=== PATIENT | female | born 1995 ===

== ENCOUNTER 2021-11-18 20:49 | Emergency (ER) | payer OTHER, SELFPAY ==
--- NOTE | ~2021-11-18 | XR_ITS ---
EXAMINATION: XR FOOT, LEFT CLINICAL INFORMATION: Foreign body left great toe. COMPARISON: None TECHNIQUE: AP, lateral, and oblique views of the left foot. FINDINGS: The bones and soft tissues are normal. No fracture. Alignment is anatomic. Joint spaces are maintained. XR/XR foot LT 2V IMPRESSION: Unremarkable left foot.
[2021-11-18 21:10] VITALS: BP 110/57; PULSE 76; RESP 18; TEMP 36.8; O2SAT 99; BMI 27.3
--- NOTE | 2021-11-18 22:30 | ED_ITS ---
HPI - Skin/Abscess/Foreign Bdy General Chief complaint: Skin/Abscess/Foreign Body Stated complaint: laceration and glass in big toe Time Seen by Provider: 11/18/21 22:01 Source: patient Mode of arrival: ambulatory Limitations: no limitations History of Present Illness HPI narrative: 26-year-old female here with reports of laceration to the left great toe after stepping on a piece of glass from a broken plate. Related Data Allergies Allergy/AdvReac Type Severity Reaction Status Date / Time No Known Allergies Allergy Verified 11/18/21 21:10 Review of Systems Review of Systems: Yes all other systems are reviewed and are negative Constitutional: Constitutional: Reports no additional constitutional complaints, Denies body ache(s), Denies chills, Denies fever(s), Denies headache(s) and Denies weakness Eyes: Eyes: Reports no additional eye complaints and Denies change in vision ENT: Reports system reviewed and no additional complaints, except as documented, Denies dizziness, Denies headache(s), Denies nasal congestion, Denies nasal discharge and Denies neck pain Cardiovascular: Cardiovascular: Reports no additional cardiovascular complaints, Denies chest pain, Denies leg edema and Denies dyspnea Respiratory: Respiratory: Reports no additional respiratory complaints, Denies cough and Denies dyspnea Gastrointestinal: Gastrointestinal: Reports no additional gastrointestinal complaints, Denies abdominal pain, Denies diarrhea, Denies nausea and Denies vomiting Genitourinary: Genitourinary: Reports no additional female genitourinary complaints and Denies urinary incontinence Musculoskeletal: Musculoskeletal: Reports no additional musculoskeletal compl aints, Denies back pain, Denies arthralgias, Denies joint swelling, Denies neck pain, Denies numbness and Denies tingling Integumentary/Breasts: Skin/Breast: Reports system reviewed and no additional complaints, except as docu and Denies rash Comments: +laceration Neurologic: Reports system reviewed and no additional complaints, except as documented, Denies Abnormal speech present, Denies dizziness, Denies headache(s), Denies numbness, Denies tingling and Denies weakness PMFSH Past Medical History Attestation statement: The following information was validated with the patient. Source: old records reviewed and nursing notes reviewed Social History Social History Advance Directives: No Physical Exam Vital Signs: Vital Signs: Last Vital Signs Temp 98.3 F 11/18/21 21:10 Pulse 76 11/18/21 21:10 Resp 18 11/18/21 21:10 BP 110/57 L 11/18/21 21:10 Pulse Ox 99 11/18/21 21:10 O2 Del Method 11/18/21 21:10 BMI result Body Mass Index 27.3 Const: General: cooperative, healthy appearing, comfortable and no acute distress Orientation/consciousness: patient oriented x3 Limitations: no limitations HEENT: Head: Yes normal to inspection Ears: hearing grossly normal bilaterally General nose exam: Normal external nose present Face and sinus: Yes normal facial exam Mouth: Normal oral and palatal mucosa present Throat: Yes posterior oropharynx normal Eyes: General: appearance normal, both eyes and all related structures Pupils: Equal, round and reactive pupils present Neck: Neck: Yes normal visual inspection Chest: Chest palpation & inspection: normal inspection of the chest Resp: Effort & Inspection: normal respiratory effort Auscultation: clear to auscultation bilaterally Cardio: Rate: regular rate Rhythm: regular rhythm Peripheral pulses: Peripheral pulses 2+ throughout GI: Inspection: Yes normal to inspection Palpation (GI): Soft to palpation and nontender Auscultation: normal bowel sounds Back/Spine/Pelvis: Thoracic/Lumbar Spine: thoracic and lumbar spine normal to inspection Skin: General skin exam: no rashes or lesions noted Neuro: General: patient oriented x3, no focal motor deficits and normal sensation to monofilament Cranial nerves: Yes Equal, round and reactive pupils present Cognition (Neuro): normal cognition Speech: No Abnormal speech present Gait exam (Neuro): Normal gait present Motor exam (neuro): 5/5 motor strength present throughout Extrem: Other: Over the volar aspect of left great toe there is an abrasion. General: Yes normal to inspection Course Course Course Narrative: See procedure note for soft tissue foreign body removal. Wound was cleansed with Betadine and saline. A topical antibiotic ointment and bandage were applied. Reviewed worrisome signs and symptoms when to return to the emergency department. Comfortable discharge home. MDM - Skin/Abscess/Foreign Bdy MDM Narrative Medical decision making narrative: Left great toe laceration with foreign body. Will check x-rays, perform foreign body removal Medical Records Attestation: I reviewed the patient's medical records. Lab Data Attestation: I reviewed the patient's lab results. Imaging Data foot xray: Attestation: I personally reviewed and interpreted this imaging study as follows: Radiologist's impression: [address] [address] XRay Report Signed Patient: Araseli Grayson MR#: [id number] : 1995 Acct:[id number] Age/Sex: 26 / F ADM Date: 11/18/21 Loc: HO.ED Attending Dr: Ordering Physician: Belem Thorpe NP Date of Service: 11/18/21 Procedure(s): XR foot LT 2V Accession Number(s): [id number] cc: Belem Thorpe NP~ EXAMINATION: XR FOOT, LEFT CLINICAL INFORMATION: Foreign body left great toe.? COMPARISON: None? TECHNIQUE: AP, lateral, and oblique views of the left foot. FINDINGS: The bones and soft tissues are normal. No fracture. Alignment is anatomic. Joint spaces are maintained.? XR/XR foot LT 2V IMPRESSION: Unremarkable left foot. Procedures Foreign Body Removal Site: left Description of foreign body: other (glass) Sedation/Analgesia: none Technique: manual removal Confirmed by:: direct visualization and radiograph Complications: none Neurovascular: normal distal pulse, normal capillary fill, distal light touch sensation intact and distal motor function normal Nerve Block Nerve Block 1: Local Anesthetic: lidocaine 1% Amount of anesthesia used (mL): 2 Side: left Nerve Blocks: digital Procedure Successful: Yes Patient Tolerated Procedure: well Complications: none Discharge Plan Discharge Clinical Impression: Foreign body (FB) in soft tissue Patient Disposition: Home, Self-Care Instructions: Soft Tissue Foreign Body (ED) Additional Instructions: Keep the wound clean covered and dry Referrals: Physician,Mari J [Primary Care Provider] - Interventions: ED Discharge Assessment Last Done: 11/18/21 23:51
[2021-11-18] MEDS: Lidocaine HCl 1 % MPF 5 ML VIAL SUBCUT (23:12)
== END 2021-11-18 23:53 | disposition home or self-care (01) ==
PROVIDERS: Emergency Provider Emergency Medicine Emergency Medical Services
DX: S91.142A Puncture wound with foreign body of left great toe without damage to nail, initial encounter (principal); W25.XXXA Contact with sharp glass, initial encounter; Y93.01 Activity, walking, marching and hiking; Y92.010 Kitchen of single-family (private) house as the place of occurrence of the external cause; Y99.9 Unspecified external cause status
CPT/HCPCS: 64450; 73620; 99282; 99284

== ENCOUNTER 2025-03-24 20:13 | Emergency (ER) | payer OTHER, SELFPAY ==
--- NOTE | 2025-03-24 | ECG_ITS ---
Test Reason : CP Blood Pressure : */* mmHG Vent. Rate : 76 BPM Atrial Rate : 76 BPM P-R Int : 152 ms QRS Dur : 84 ms QT Int : 374 ms P-R-T Axes : 66 39 24 degrees QTcB Int : 420 ms Normal sinus rhythm Normal ECG No previous ECGs available Referred By: Generic ED Physician Electronically Signed By: ZAIRA ROWE MD
[2025-03-24 20:34] VITALS: BP 114/61; PULSE 73; RESP 16; TEMP 36.8; O2SAT 97; BMI 26.0
--- NOTE | 2025-03-24 20:35 | ED_ITS ---
HPI - General Adult General Chief complaint: Chest Pain Stated complaint: chest pain / stress test abnormal at pcp Time Seen by Provider: 03/24/25 21:49 Source: patient, family (), RN notes reviewed and old records reviewed Mode of arrival: ambulatory Limitations: no limitations History of Present Illness ED Provider: Dr. Alysia Davies HPI narrative: 30-year-old female with a history of hypercholesterolemia presenting with chest pain that is been ongoing for months and worsening over the last several days. Patient was seen at [facility] earlier today and had a stress test performed around 8:00 a.m.. States that she got a phone call from her doctor's office telling her to come to the emergency department if she experienced any further chest pains due to an abnormal stress test report. Patient states that she has chest pain all of the time that is 3/10 in intensity. Today she noticed while exerting herself at work that the pain became worse. She called her doctor's office and they told her to come to the hospital right away. She denies associated shortness of breath, cough or cold-type symptoms, fevers, nausea, vomiting, lower extremity edema or pain. Has not taken anything for pain at home. Family history of heart disease but not at a young age. Patient has not started any medications for hypercholesterolemia just yet. Related Data Allergies Allergy/AdvReac Type Severity Reaction Status Date / Time oxycodone Allergy Rash Verified 03/24/25 20:36 Review of Systems 2 Review of Systems: as per HPI, full review of systems performed and negative but for the above mentioned pertinent positives and negatives. [facility] Social History Social History Smoked in Last 30 Days: No Use of substances other than those prescribed or required for medical reasons: No Advance Directives: No Advance Directives Information Provided: Yes Do you have a plan to hurt others: No Plan Physical Exam ED Exam Exam: GENERAL: Well-Appearing, conversant, no acute distress. SKIN: Normal skin color for ethnicity, warm, dry, no rashes noted. HEENT:? Normocephalic, atraumatic, no stridor, posterior oropharynx nonerythematous, dentition intact, EOMI. NECK: Soft, supple, full ROM, midline structures nontender, no step-offs, no deformities, no lymphadenopathy. CHEST: Heart regular rate and rhythm, no murmurs, symmetric chest rise and fall. PULMONARY: Clear to auscultation bilaterally, no labored breathing, no wheezes/rhales/rhonchi. ABDOMINAL: Soft, nondistended, nontender, positive bowel sounds in all quadrants. : Deferred. MUSCULOSKELETAL: Normal tone, full range of motion, no deformities, no peripheral edema. NEURO: Alert and oriented x3, CN II through XII intact, equal strength and sensation bilateral upper and lower extremities, no focal neurologic deficits.? PSYCHIATRIC: Normal affect, fluid speech, good eye contact and appropriate demeanor. Vital Signs: Vital Signs - 24 hr 03/24/25 20:34 03/24/25 23:11 Temperature 98.2 F 98.3 F Pulse Rate 73 74 Respiratory Rate 16 18 Blood Pressure 114/61 132/67 Pulse Oximetry 97 99 Oxygen Delivery Method Room Air Room Air BMI result Body Mass Index 26.0 Course Course Course Narrative: RME: 30 yo F here for chest pain that radiates to neck. 4 months. Had stress test at [facility]. Recommend her come to ED for abnormal stress test. Medications Administered Discontinued Medications Generic Name Dose Route Start Last Admin Trade Name Freq PRN Reason Stop Dose Admin Ibuprofen 600 mg 03/24/25 23:04 03/24/25 23:50 Ibuprofen 600 Mg Tablet PO 03/24/25 23:05 600 mg ONCE ONE Administration Medical Decision Making Medical Decision Making [facility] Narrative: Patient presents today with a chief complaint of chest pain. Differential diagnosis includes, but is not limited to, acute coronary syndrome, musculoskeletal pain, pneumothorax, GERD, pleurisy, pulmonary embolism, dissection, among others. I will order EKG,laboratory workup including cardiac enzymes to further evaluate for etiology. Patient has been dealing with this issue for 4 months. She had a stress test today that was reportedly abnormal showing evidence of ischemia. I requested [facility] records and indeed she had an exercise stress test at about 8:00 a.m. this morning which revealed evidence of ST depressions in leads V3 through V5 during peak exercise exertion. EKG results baseline after rest. Recommended repeat stress test with imaging. Patient was told to come to the hospital if she experienced chest pain again today. On my exam, patient is well-appearing, resting, appears to be in no distress whatsoever. Her vital signs are totally normal and she reports a 3/10 intensity in the left chest radiating to her back. No dyspnea on exam. Oxygen levels are normal. She is PERC negative. Heart score 2 for risk factors and a slightly suspicious story of chest pain on exertion. Initial cardiac enzyme is low. We will repeat cardiac enzyme and EKG to see if it trends in the wrong direction but I anticipate that she will be stable for discharge to follow up with her senior application programmer as an outpatient. I had an extensive discussion with the patient and her about abnormal stress test and what that means. Patient understands and agrees with plan. Differential Diagnosis Differential Diagnoses: The differential diagnosis associated with the presentation includes (As above) Admission/Observation Consideration of admission/observation: Escalation of care including admission/observation considered Lab Data MDM Lab Attestation statement: I reviewed the patient's lab results. 03/24/25 20:55 03/24/25 20:55 Labs: Lab Results 03/24/25 03/24/25 Range/Units 20:55 23:20 WBC 9.1 (4.8-10.8) X10*3/uL RBC 4.68 (4.20-5.50) X10*6/uL Hgb 12.1 (12.0-16.0) g/dl Hct 37.4 (37.0-47.0) % MCV 79.9 L (80.0-98.0) fL MCH 25.9 L (27.0-33.0) pg MCHC 32.4 (31.0-35.0) g/dl RDW 13.1 (11.0-16.0) % Plt Count 213 (160-400) X10*3/uL MPV 11.9 (9.4-12.3) fL Immature Gran % (Auto) 0.2 (0.0-0.4) % Neut % (Auto) 59.0 (45-73) % Lymph % (Auto) 32.3 (20-40) % [place] % (Auto) 6.5 (2-11) % Eos % (Auto) 1.7 (0-4) % Baso % (Auto) 0.3 (0-2) % Lymph # (Auto) 2.9 (1.2-4.9) X10*3/uL [place] # (Auto) 0.6 (0.1-1.2) X10*3/uL Eos # (Auto) 0.2 (0.0-0.4) X10*3/uL Baso # (Auto) 0.0 (0.0-0.2) X10*3/uL Abs Immat Gran (auto) 0.02 (0.00-0.03) X10*3/uL Absolute Neuts (auto) 5.4 (2.0-8.3) x10*3/uL Absolute Nucleated RBC 0.000 (0.0-0.012) X10*3/uL Nucleated RBC % (auto) 0.0 (0.0-0.2) /100WBC Sodium 140 (135-145) mmol/L Potassium 3.8 (3.3-5.1) mmol/L Chloride 105 (96-108) mmol/L Carbon Dioxide 27 (22-29) mmol/L Anion Gap 11 L (12-20) BUN 12 (9-16) mg/dL Creatinine 0.70 (0.5-1.4) mg/dL Estim Creat Clear Calc 126.4 Estimated GFR > 60 Random Glucose 96 (60-115) mg/dL Calcium 9.2 (8.4-10.2) mg/dL Magnesium 2.1 (1.6-2.6) mg/dL Total Bilirubin 0.7 (0.0-1.0) mg/dL AST 17 (5-31) U/L ALT 14 (0-31) U/L Alkaline Phosphatase 64 (39-117) U/L Troponin I High Sens < 2.7 < 2.7 (<3.5-17.0) ng/L Total Protein 7.2 (6.5-8.0) g/dL Albumin 4.4 (3.5-5.0) g/dL Beta HCG, Quant < 2 mIU/mL Independent Interpretation I performed an independent interpretation of an: EKG Interpretation: 03/24/2025 8:20 p.m. My independent interpretation of the ECG reveals normal sinus rhythm with rate of 76, normal axis, normal intervals, no ST elevations or depressions to suggest ischemic changes, no previous for comparison. 03/24/2025 11:23 p.m. My independent interpretation of the ECG reveals normal sinus rhythm with rate of 65, normal axis, normal intervals, no ST elevations or depressions to suggest ischemic changes, unchanged from previous. Independent Historian Clinical information obtained from an independent historian. History obtained from or confirmed by: Spouse External Record Review External record reviewed: Outpatient record and Other ([facility] stress test report) Prescription Management I considered prescription management with: Pain Medication Chronic Conditions Patient?s care impacted by: Other (Hyperlipidemia) Discharge Plan Discharge Clinical Impression: Chronic chest pain, Abnormal electrocardiogram during exercise stress test Patient Disposition: Home, Self-Care Instructions: Chest Pain (ED) Additional Instructions: Thankfully your cardiac workup here in the emergency department was normal. Please call your senior application programmer and your primary care doctor tomorrow morning to follow up. They want to do another stress test with different imaging. If you develop any new or worsening symptoms including: Worsening chest pain, shortness of breath, fevers greater than 100?, sputum production that is green or bloody, you should return to the emergency department immediately. Call 911 with any medical emergency. You may take Tylenol or Motrin at home for pain. Continue to rest as much as possible. I hope you feel better. Referrals: [facility] [Provider Group, Cardiology] Print Language: Macanese
[2025-03-24 20:58] LABS: MANUAL DIFF FLAG NO
[2025-03-24 21:00] LABS: Hematocrit 37.4 % (37.0-47.0); Hemoglobin 12.1 g/dl (12.0-16.0); Imm Gran Abs Auto 0.02 X10*3/uL (0.00-0.03); Imm Gran Pct Auto 0.2 % (0.0-0.4); Lymphocytes Absolute Auto 2.9 X10*3/uL (1.2-4.9); Mean Corpuscular HGB Conc 32.4 g/dl (31.0-35.0); Mean Corpuscular Hemoglobin 25.9 pg (27.0-33.0); Mean Corpuscular Volume 79.9 fL (80.0-98.0); NRBC Abs Auto 0.000 X10*3/uL (0.0-0.012); NRBC Pct Auto 0.0 /100WBC (0.0-0.2); Platelet Count 213 X10*3/uL (160-400); Red Blood Count 4.68 X10*6/uL (4.20-5.50); White Blood Count 9.1 X10*3/uL (4.8-10.8)
[2025-03-24 21:25] LABS: Chloride 105 mmol/L (96-108); Potassium 3.8 mmol/L (3.3-5.1); Sodium 140 mmol/L (135-145)
[2025-03-24 21:31] LABS: Troponin-I High Sensitivity < 2.7 ng/L (<3.5-17.0)
[2025-03-24 21:40] LABS: Alanine Aminotransferase 14 U/L (0-31); Albumin Level 4.4 g/dL (3.5-5.0); Alkaline Phosphatase 64 U/L (39-117); Anion Gap 11 (12-20); Blood Urea Nitrogen 12 mg/dL (9-16); Calcium 9.2 mg/dL (8.4-10.2); Carbon Dioxide 27 mmol/L (22-29); Creatinine Clr Calc Pharmacy 126.4; Estimated Glomerular Filt Rate > 60; Magnesium 2.1 mg/dL (1.6-2.6); Total Protein 7.2 g/dL (6.5-8.0)
--- OUTSIDE RECORDS SUMMARY | 2025-03-24 21:55 | XMS_ITS | Data Portability ---
Author Organization [place] - [facility], Allergy Address [address] [address] Care Team Providers Care Results Engineer Name Role Phone NADEEM TAPIA Primary Care Provider Assessment Encounter Date Assessment Date Assessment LastModified by Organization Details LastModified Time 05/30/2024 05/30/2024 The patient complains of intermittent left-sided periauricular pressure sensation. Physical exam reveals no identifiable source of these symptoms involving the auricle, external auditory canal, or tympanic membrane. Furthermore, examination was positive for crepitus and tenderness of the left jaw joint and francesco-TMJ musculature. The patient's periauricular pressure sensation is most likely consistent with intermittent inflammation of the jaw joint or spasm of the surrounding musculature. This is likely exacerbated by gum chewing . I recommended the patient use light massage, warm compresses and anti-inflammator ies for symptomatic management. Stressed chewing evenly on both sides of the mouth to keep from overworking the jaw joint. Use soft food diet as needed. Jaw Joint Program information sheet was shared. If this treatment plan is ineffective, recommend follow up with their dentist. . I have also issued the patient a prescription for Flonase. I will see her back in a couple of months. If her symptoms persist we may want to consider allergy testing. Patient was seen and examined with Dr. Will. Breanna Lopez PA-C functioned as a scribe for this visit. [email or web address] Not available 05/30/2024 16:44:21 Plan of Treatment Reminders Order Date Submit Date Provider Last Modified By Organization Details Last Modified Time Details Appointments None recorded. Lab None recorded. Referral None recorded. Procedures None recorded. Surgeries None recorded. Imaging None recorded. Medication Orders Flonase Allergy Relief 50 mcg/actua tion nasal spray,[facility] 024 024 [facility][id number], [address] [facility] [place], [address], 13:22:09 Patient TargetsNo targets recorded. Patient InstructionsNo instructions recorded. Reason for Referral None Reported. Problems Name Problem SNOMED Code Status Onset Date Resolution Date Notes Provider Name and Address Organization Details Recorded Time Allergic rhinitis 88634709 Active 2023 rBeanna colin [place] - [facility] 4 13:21:39 Pain of left temporomand ibular joint 8654855835161 9107 Active 2023 Breanna colin MA - [facility] 4 16:41:18 Problem Notes None recorded. Medical Equipment None Reported. Medications Name Sig Start Date Stop Date Status Note LastModified by Organization Details LastModified Time doxycycline hyclate 100 mg capsule TAKE 1 CAPSULE BY MOUTH TWICE A DAY WITH FOOD active Not Available Not Available No t Available ibuprofen 800 mg tablet TAKE 1 TABLET BY MOUTH TWICE A DAY NEEDED FOR PAIN FOR 14 DAYS active Not Available Not Available No t Available fluconazole 150 mg tablet TAKE 1 TABLET BY MOUTH ONCE active Not Available Not Available N ot Available fluticasone propionate 50 mcg/actuatio n nasal spray,suspen musa INSTILL 2 SPRAYS BY INTRANASAL ROUTE EVERY DAY 2024 active Not Available Not Available Not Avai lable betamethason e dipropionate 0.05 % lotion APPLY TO SCALP 3 TIMES A WEEK active Not Available Not Available No t Available doxycycline hyclate 100 mg tablet TAKE 1 TABLET BY MOUTH TWICE A DAY FOR 14 DAYS active Not Available Not Available No t Available amoxicillin 875 mg-potassium clavulanate 125 mg tablet TAKE 1 TABLET BY MOUTH TWICE A DAY FOR 10 DAYS active Not Available Not Available No t Available clindamycin 1 % topical gel, once daily APPLY DAILY active Not Available Not Available Not Available Zoryve 0.3 % topical foam Apply to scalp daily. active Not Available Not Available No t Available Vitals None Recorded Social History None recorded. Functional Status None recorded. Mental Status None recorded. Family History Nothing Reported. Medical History No medical history recorded. Gynecological HistoryNo gynecological history recorded. Obstetrics History GPAL:G 0 P 0 0 0 0 Past Encounters Encounter ID Performer Location Encounter Start Date Encounter Closed Date Diagnosis/Indication Diagnosis SNOMED-CT Code Diagnosis ICD10 Code Diagnosis IMO Codes Diagnosis Note [id number] ETHEL LOPEZ MD [facility] [address] [address] 05/30/2024 12:54:02 05/30/2024 17:00:12 Allergic rhinitis 40994412 J30.9 Pain of le ft temporomandibular joint [id number] 7219054 M26.622 Health Concerns Section Related Observation LastModified by Organization Detai ls LastModified Time None Recorded Concern Status LastModified by Organization Details LastModified Time None Recorded Advance Directives Directive None Recorded Payers Insurance Date Sequence Insurance Name Policy Number Policy Hanson Covered Member ID Hanson Member ID Guarantor Name 08/03/2024 1 [facility] [id number] 1 Hunter Pillai [id number] Hunter Pillai Notes Date Note Type Note Provider Name and Address Organization Details Recorded Time 05/30/2024 text/html ROS as noted in the HPI 29 year old female presents to the office reporting almost a year of intermittent left ear and left side of the throat pain. She feels worse when she sleeps on the left side. She takes tylenol and ibuprofen for the pain. She admits to some allergies and does take Zyrtec which helps somewhat. She reports a little congestion and postnasal drip. She is currently having mild left ear pain. She is chewing gum throughout the visit. She denies otorrhea. She had ear infections as a child. No ear surgeries. No hearing loss. No eating, drinking, or swallowing issues. She is a nonsmoker. ETHEL WILL MD [address] [place] [address], [phone], [facility] - [facility] 05/30/2024 16:56:31 OBGyn Episode No OBEpisode recorded.
[2025-03-24 22:02] LABS: Aspartate Amino Transferase 17 U/L (5-31)
--- NOTE | 2025-03-24 23:04 | ECG_ITS ---
Test Reason : CP Blood Pressure : */* mmHG Vent. Rate : 65 BPM Atrial Rate : 65 BPM P-R Int : 142 ms QRS Dur : 76 ms QT Int : 394 ms P-R-T Axes : 53 31 14 degrees QTcB Int : 409 ms Normal sinus rhythm Normal ECG When compared with ECG of 24-Mar-2025 20:20, No significant change was found Referred By: Alysia Davies Electronically Signed By: ZAIRA ROWE MD
[2025-03-24 23:11] VITALS: BP 132/67; PULSE 74; RESP 18; TEMP 36.8; O2SAT 99
[2025-03-24 23:49] LABS: Troponin-I High Sensitivity < 2.7 ng/L (<3.5-17.0)
[2025-03-25 00:11] VITALS: BP 132/67; PULSE 74; RESP 18; TEMP 36.8; O2SAT 99
== END 2025-03-25 00:04 | disposition home or self-care (01) ==
PROVIDERS: Emergency Provider Emergency Medicine; PCP Physician Assistant Medical
DX: R07.89 Other chest pain (principal); R94.31 Abnormal electrocardiogram [ECG] [EKG]; Z82.49 Family history of ischemic heart disease and other diseases of the circulatory system; Z79.899 Other long term (current) drug therapy
CPT/HCPCS: 36415; 80053; 83735; 84484; 84702; 85025; 93005; 99283; 99285

== ENCOUNTER → 2025-03-24 20:20 | Outpatient (BNV) | payer OTHER, SELFPAY | PROVIDERS: Emergency Provider Emergency Medicine; PCP Physician Assistant Medical; Visit Provider Internal Medicine Cardiovascular Disease | DX: R07.9 Chest pain, unspecified (principal) | CPT/HCPCS: 93010 ==